=== PATIENT | male | born 1940 ===

== ENCOUNTER 2019-05-06 12:17 | Emergency (ER) | payer OTHER ==
[~2019-05-06] VITALS: Ht 157.5 cm; Wt 86.2 kg
[2019-05-06] MEDS ORDERED: FORTAMET500 MG (12:48)
[2019-05-06] MEDS ORDERED: LANTUS SOL100 UNIT/1 (12:48)
== END 2019-05-06 16:24 | disposition home or self-care (01) ==
LOC: ER 12:17
DX: L03.113 Cellulitis of right upper limb (principal)